=== PATIENT | female | born 1960 | race Caucasian/White ===

== ENCOUNTER → 2017-01-12 | Outpatient (CLI) | payer OTHER ==
[~2017-01-12] MED LIST: ANAS1TAB19 PO; CITA20TA9 PO; IBUP-1449 PO; MESA1.2T PO; MULT-506 PO; PRAV20TA PO; PRED-301 PO; PSEU30TA20 PO; ZOLP5TAB PO
[2017-01-12 09:40] VITALS: BP 126/77; PULSE 79; TEMP 36.4; O2SAT 93
--- NOTE | 2017-01-12 10:23 | Radiation Oncology Follow-Up ---
Radiation Oncology Follow-Up Date of Visit Jan 12, 2017. Reason For Visit One-month follow-up and cancer survivorship care plan Radiation Completion Date 12/13/16 Diagnosis (1) Intraductal carcinoma of left breast Status: Resolved Onset Date: 08/17/2016 Stage: 0 Permanent Comment: Abnormal left breast mammogram Status post left breast core needle biopsy 08/17/2016 revealing DCIS grade 2 Estrogen receptor positive and progesterone receptor positive Status post left breast upper inner quadrant partial mastectomy 09/12/2016 Status post reexcision anterior/superior margin, benign and inferior lumpectomy cavity also benign 10/05/2016 Status post completion of radiation therapy 12/13/2016. She received 5130 cGy utilizing hypo-fractionation. Last Edited By: Maame Ochoa on Dec 27, 2016 07:56 History of Present Illness Ms. Frye is a 56-year-old female who recently presented with an abnormal mammogram. The patient had a bilateral screening mammogram completed on 2016 which revealed a clustered amorphous and punctate calcifications in the left breast at the 9 to 10 o'clock position. The patient underwent a unilateral left diagnostic mammogram on 07/27/2016 which revealed grouped coarse heterogeneous calcifications of the upper inner quadrant at middle depth of the left breast. 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 The patient underwent a lumpectomy of the left breast on 09/12/[address] Soniya Verdin. 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 The margins were [address] Verdin brought the patient back to the operating room on 10/05/2016 for a reexcision to obtain larger margins; the pathology revealed only benign fatty breast tissue with healing biopsy site. The patient was seen in consultation by Dr. Krystal Whitney from medical oncology who has recommended anti-hormonal therapy following the completion of radiation therapy. We are now seeing the patient in consultation discuss role of adjuvant radiation therapy. She underwent a CT simulation. She was found to be a candidate for hypo- fractionation. Radiation was completed 12/13/2016. She received 5130 cGy. Interim History She's been doing well over the past month. She has had minimal irritation of the skin. There is mild discoloration which has improved. She's noted no masses or tenderness and no change of the axilla. Mammography has been scheduled for 02/19/2017. She also has follow-up appointments with Dr. Verdin and Dr. Whitney. The prior areas of desquamation healed without difficulty. Allergies Coded Allergies: No Known Allergies (Verified Allergy, Unknown, 07/10/02) Uncoded Allergies: N (Allergy, Unknown, 07/10/02) NFA (Allergy, Unknown, 07/10/02) NKDA (Allergy, Unknown, 07/10/02) NO (Allergy, Unknown, 07/10/02) Home Medications Scheduled Anastrozole (Arimidex), 1 TAB PO DAILY Citalopram Hydrobromide (Celexa), 1 TAB PO DAILY Mesalamine (Lialda), 4 TAB PO DAILY Multivitamin (Multivitamin), 1 TAB PO DAILY Pravastatin (Pravachol ), 20 MG PO DAILY Prednisone (Prednisone), 5 MG PO DIRECTED Scheduled PRN Ibuprofen Tab (Motrin), 1 TAB PO Q6H PRN for Moderate Pain Pseudoephedrine (Sudafed), 30 MG PO Q6 PRN for Nasal Congestion Zolpidem Tartrate (Ambien), 1 TAB PO HS PRN for Sleep Review of Systems Gastrointestinal: Symptoms: WNL GI Comments: has ulcerative colitis Oral: Symptoms: No Problems Respiratory: Symptoms: WNL Urinary: Symptoms: WNL Skin: Symptoms: Faint Erythema Breast: Right Upper Arm Measurement: 33.5 Right Mid Arm Measurement: 28.5 Right Wrist Measurement: 17.5 Left Upper Arm Measurement: 34.0 Left Mid Arm Measurement: 28.0 Left Wrist Measurement: 18.0 Arm Dominence: Right Additional Notes: She completed distress management report and answered "no" to all questions other than she continues to have some worry about her diagnosis. Physical Exam Vital Signs Date Time Temp Pulse Resp B/P (MAP) Pulse Ox O2 Delivery O2 Flow Rate FiO2 01/12/17 09:40 36.4 79 16 126/77 93 Pain: Patient Pain Scale: 0 - 10 Initial Pain Intensity: 0.0 Fatigue: None General Appearance: no apparent distress Eyes: normal inspection, EOMI ENT: normal ENT inspection, hearing grossly normal Neck: no adenopathy, thyroid normal Respiratory/Chest: lungs clear, no respiratory distress, no accessory muscle use Breast: Breast examination reveals well-healed incision of the left breast. There are no masses or tenderness and no axillary adenopathy. There is resolving hyperpigmentation. There is no edema. There are no skin retractions or nipple changes. Using the [place] score cosmesis she has a good outcome. The right breast showed no masses or tenderness and no axillary adenopathy. Cardiovascular: regular rate, rhythm, no gallop, no murmur Extremities: no pedal edema Neurologic/Psychiatric: no motor/sensory deficits, alert, normal mood/affect Skin: warm/dry Assessment & Plan Plan: The patient is also seen today by Dr. Felder. She'll continue regular follow-up with Dr. Verdin and Dr. Whitney. She is scheduled for mammography 2016 today we completed a cancer survivorship care plan. A copy of the document was given to the patient. We asked her to return to our office in 6 months. She may call if she has any questions or concerns in the interim. ADDENDUM: I agree with note created by Maame Ochoa PA-C. I reviewed the patient's chart and information with her. I have examined and evaluated the patient. I reviewed relevant clinical information and answered the patient's and /or family's questions. LICENSE EXAMINER Total Time In Follow-Up I spent 20 minutes speaking to the patient and formulated examination. I spent 20 minutes reviewing information, preparing the survivorship document, and completing this note. AK I spent 15 minutes examining and counseling the patient. LICENSE EXAMINER Copy To Soniya Verdin MD; Krystal Whitney MD; Elena Velasquez M.D.
== END | disposition home or self-care (01) ==
LOC: C.ONC 09:29
PROVIDERS: ATTEND Physician Assistant Medical
DX: Z08 Encounter for follow-up examination after completed treatment for malignant neoplasm (principal); Z92.3 Personal history of irradiation; Z85.3 Personal history of malignant neoplasm of breast

== ENCOUNTER → 2017-08-01 | Outpatient (CLI) | payer OTHER ==
[2017-08-01 13:59] VITALS: BP 126/83; PULSE 68; TEMP 36.4; O2SAT 95
--- NOTE | 2017-08-01 15:23 | Radiation Oncology Follow-Up ---
Radiation Oncology Follow-Up Date of Visit Aug 01, 2017. Reason For Visit Six-month follow-up Radiation Completion Date finished 12-13-2016 Diagnosis (1) Intraductal carcinoma of left breast Status: Resolved Onset Date: 08/17/2016 Stage: 0 Permanent Comment: Abnormal left breast mammogram Status post left breast core needle biopsy 08/17/2016 revealing DCIS grade 2 Estrogen receptor positive and progesterone receptor positive Status post left breast upper inner quadrant partial mastectomy 09/12/2016 Status post reexcision anterior/superior margin, benign and inferior lumpectomy cavity also benign 10/05/2016 Status post completion of radiation therapy 12/13/2016. She received 5130 cGy utilizing hypo-fractionation. Last Edited By: Maame Ochoa on Dec 27, 2016 07:56 History of Present Illness Ms. Frye presented with an abnormal mammogram. The patient had a bilateral screening mammogram completed on 07/13/2016 which revealed a clustered amorphous and punctate calcifications in the left breast at the 9 to 10 o'clock position. The patient underwent a unilateral left diagnostic mammogram on 07/27 which revealed grouped coarse heterogeneous calcifications of the upper inner quadrant at middle depth of the left breast. 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 The patient underwent a lumpectomy of the left breast on 09/12/[address] Soniya Verdin. 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 The margins were 1 [address] directions[address] Verdin brought the patient back to the operating room on 10/05/2016 for a reexcision to obtain larger margins; the pathology revealed only benign fatty breast tissue with healing biopsy site. The patient was seen in consultation by Dr. Krystal Whitney from medical oncology who has recommended anti-hormonal therapy following the completion of radiation therapy. We are now seeing the patient in consultation discuss role of adjuvant radiation therapy. She underwent a CT simulation. She was found to be a candidate for hypo- fractionation. Radiation was completed 12/13/2016. She received 5130 cGy. Interim History She has been doing well over the past 6 months. She is noted no changes to her breast. She has noted no masses or tenderness and no change of the axilla. She has had no swelling of her arm. She is up-to-date on mammography. She had been prescribed antiestrogen therapy. She unfortunately developed urinary symptoms. She stopped the medication and the symptoms resolved. She plans to speak to medical oncology today about her side effects. She has 2 lesions on her back. One is larger than the other and these have been having associated itching. She stated she had a similar lesion that proved to be a skin cancer that was previously removed. Allergies Coded Allergies: Anastrozole (Verified Allergy, Intermediate, GI SYMPTOMS, 08/01/17) "voiding all the time " Uncoded Allergies: N (Allergy, Unknown, 07/10/02) NFA (Allergy, Unknown, 07/10/02) NKDA (Allergy, Unknown, 07/10/02) NO (Allergy, Unknown, 07/10/02) Home Medications Scheduled Citalopram Hydrobromide (Celexa), 1 TAB PO DAILY Mesalamine (Lialda), 4 TAB PO DAILY Multivitamin (Multivitamin), 1 TAB PO DAILY Pravastatin (Pravachol ), 20 MG PO DAILY Prednisone (Prednisone), 5 MG PO DIRECTED Scheduled PRN Ibuprofen Tab (Motrin), 1 TAB PO Q6H PRN for Moderate Pain Pseudoephedrine (Sudafed), 30 MG PO Q6 PRN for Nasal Congestion Zolpidem Tartrate (Ambien), 1 TAB PO HS PRN for Sleep Review of Systems Gastrointestinal: Symptoms: WNL GI Comments: has ulcerative colitis Oral: Symptoms: No Problems Respiratory: Symptoms: Dry Cough Other Respiratory: "coughs in the AM, getting over a bad cold ' Urinary: Symptoms: WNL Skin: Symptoms: Faint Erythema Other Skin Symptoms: " I have a spot on the back of my right shoulder , itches " Breast: Right Upper Arm Measurement: 34.0 Right Mid Arm Measurement: 29.0 Right Wrist Measurement: 18.0 Left Upper Arm Measurement: 34.5 Left Mid Arm Measurement: 28.9 Left Wrist Measurement: 17.5 Arm Dominence: Right Patient Cosmetic Evaluation: Excellent Staff Cosmetic Evalaluation: Excellent Physical Exam Vital Signs Date Time Temp Pulse Resp B/P (MAP) Pulse Ox O2 Delivery O2 Flow Rate FiO2 08/01/17 13:59 36.4 68 20 126/83 95 Fatigue: None General Appearance: no apparent distress Eyes: normal inspection, EOMI ENT: normal ENT inspection, hearing grossly normal Neck: no adenopathy, thyroid normal Respiratory/Chest: lungs clear, no respiratory distress, no accessory muscle use Breast: Breast examination reveals well-healed incision of the left breast. There is very slight hyperpigmentation. There are no masses or tenderness and no axillary adenopathy. She has no skin retractions or nipple changes. Using the [place] score cosmesis she has a good outcome. The right breast showed no masses or tenderness and no axillary adenopathy. Cardiovascular: regular rate, rhythm, no gallop, no murmur Extremities: no pedal edema Neurologic/Psychiatric: no motor/sensory deficits, alert, normal mood/affect Skin: + pertinent finding (She has 2 keratotic appearing lesions on her back. These are light brown and have smooth borders.) Pain Management Patient Reports Pain: No Side: Bilateral Pain Location: None Patient Preferred Pain Scale: 0 - 10 Initial Pain Intensity: 0.0 Pain Management Plan She denies pain therefore requires no pain management. Laboratory Laboratory Results: not applicable Pathology Pathology Results: not applicable Imaging Imaging Studies: were reviewed, and pertinent findings noted below Imaging Comments Date/Time of Imaging Study Study Completed: 07/16/2017 9:45 AM [facility] PACS Image Narrative Comparison is made to images from 02/19/2017 (left) and images from 09/12/2016 ( left) and images from 08/17/2016 (right) and images from 07/27/2016 (left) and images from 07/13/2016 (bilateral). Left Breast Findings: There are scattered fibroglandular densities (25% - 50% fibroglandular). Post surgical changes related to breast conserving surgery for carcinoma are noted. No new dominant mass or clustered microcalcifications suspicious for malignancy are identified. Right Breast Findings: There are scattered fibroglandular densities (25% - 50% fibroglandular). No new dominant mass or clustered microcalcifications suspicious for malignancy are identified. Authenticated By Authenticating Date Authenticating Time Reading Providers(s) SENIA MAYES MD 07-16-2017 14:23 SENIA MAYES MD IMPRESSION: LEFT BREAST: Findings are probably benign. A short interval follow-up is recommended in 6 months. RIGHT BREAST: Benign, no evidence of malignancy. Normal interval follow-up is recommended in 12 months. Note: Approximately 10% of breast cancers are not detected on mammography. A negative mammographic report should not delay biopsy if a clinically suggestive mass is present. This mammogram has been analyzed with the computer aided detection system. Tomosynthesis was done. This notice contains the results of your recent mammogram, including information about breast density. If your mammogram shows that your breast tissue is dense, you should know that dense breast tissue is a common finding and is not abnormal. Statistics show many women could have dense or highly dense breasts. Dense breast tissue can make it harder to find cancer on a mammogram and may be associated with an increased risk of cancer. This information about the result of your mammogram is given to you to raise your awareness and to inform your conversations with your physician. Together, you can decide which screening options are right for you, based on your mammogram results, individual risk factors or physical examination. A report of your results was sent to your physician. Your mammographic breast density on today's study is described above. There are four categories of breast density on mammography. Fatty breasts and those with scattered fibroglandular tissue are not considered dense. Heterogeneously dense or extremely dense tissue is considered "dense". Please understand that assessment of breast density may vary from year to year. OVERALL ASSESSMENT - CATEGORY 3 - PROBABLY BENIGN END OF IMPRESSION Assessment & Plan Plan: She was seen and examined by Dr. Felder. Continue with scheduled mammography. She will have a mammogram in December. Continue follow-up with her primary care physician, breast surgeon, and medical oncology. She will be seen today in medical oncology and is going to review the side effects that had previously occurred. We discussed the lesions on her back. I have recommended dermatology evaluation. she will call and set up appointment. We asked her to return to our office in 1 year. She may call if she has any questions or concerns in the interim. Assessment & Plan (Attending) I agree with note created by Maame Ochoa PA-C. I reviewed the patient's chart and information with her. I have examined and evaluated the patient. I reviewed relevant clinical information and answered the patient's and/or family' s questions. TIPPLE SUPERVISOR Total Time In Follow-Up I spent 20 minutes speaking to the patient and performing examination. I spent 15 minutes reviewing information on completing this note. AK Total Time (Attending) In Follow-Up I spent 15 minutes examining and counseling the patient. TIPPLE SUPERVISOR Copy To Soniya Verdin MD; Krystal Whitney MD; Jeane Thomson D.O.
== END | disposition home or self-care (01) ==
LOC: C.ONC 13:47
PROVIDERS: ATTEND Physician Assistant Medical
DX: Z08 Encounter for follow-up examination after completed treatment for malignant neoplasm (principal); Z92.3 Personal history of irradiation; Z86.000 Personal history of in-situ neoplasm of breast